=== PATIENT | female | born 1960 | race Caucasian/White ===

== ENCOUNTER 2016-08-01 16:59 | Emergency (ER) | payer OTHER ==
[2016-08-01 17:01] VITALS: BP 159/70; PULSE 62; RESP 16; TEMP 98.5; O2SAT 98
[2016-08-01] MEDS ORDERED: IBUPROFEN 800 MG TAB PO ONE (18:15)
[2016-08-01] MEDS ORDERED: CYCLOBENZAPRINE HCL 10 MG TAB PO ONE (18:15)
--- NOTE | 2016-08-01 18:54 | RADRPT ---
EXAM DATE/TIME: 08/01/2016 18:15 [facility] COMPARISON: No previous studies available for comparison. INDICATIONS : Cervical spine pain, fell MEDICAL HISTORY : None. SURGICAL HISTORY : None. ENCOUNTER: Initial ACUITY: 1 day PAIN SCORE: 8/10 LOCATION: Cervical spine FINDINGS: Two projection examination was performed. There is normal alignment and curvature of the vertebral b odies down to the level of C7. No evidence of fracture or subluxation. Vertebral body height is wander ntained. The disc spaces are maintained. The prevertebral soft tissues are of normal thickness. Th e atlanto-axial articulation is intact. CONCLUSION: 1. Mild degenerative disc disease. No acute findings. Genaro Gomez MD on August 01, 2016 at 18:51 Board Certified Radiologist. This report was verified electronically.
--- NOTE | 2016-08-01 18:55 | RADRPT ---
EXAM DATE/TIME: 08/01/2016 18:19 [facility] COMPARISON: No previous studies available for comparison. INDICATIONS : Lumbar spine pain, fell MEDICAL HISTORY : None. SURGICAL HISTORY : None. ENCOUNTER: Initial ACUITY: 1 day PAIN SCORE: 8/10 LOCATION: Lumbar spine FINDINGS: Two view examination was performed. There are five non-rib bearing vertebral bodies. The vertebral bodies are in normal alignment without evidence of subluxation or scoliosis. Moderate degenerative ch anges lower lumbar spine. The pedicles are intact. Bony mineralization is normal. No fracture is id entified. CONCLUSION: Moderate degenerative disc disease in the lower lumbar spine with vacuum phenomenon at L4-5-S1. No fr acture or subluxation. Genaro Gomez MD on August 01, 2016 at 18:52 Board Certified Radiologist. This report was verified electronically.
[2016-08-01] MEDS ORDERED: IBUP-232 PO (19:12)
[2016-08-01] MEDS ORDERED: CYCL1TAB29 PO (19:12)
--- NOTE | 2016-08-01 19:14 | PD ---
HPI Chief Complaint: Back/ Neck Pain or Injury Time Seen by Provider: 18:00 Travel History International Travel<30 days: No Contact w/Intl Traveler<30days: No Traveled to known affect area: No History of Present Illness HPI Patient is a 56 year old female presented to the evaluation of neck and lower back pain after slipping at latter-day this morning. Patient slipped on a piece of potato, she did not fall to the ground, she grabbed onto a table. She denies any bladder or bowel incontinence, no saddle paresthesia, no weakness in her extremities. Patient is mainly [place]-speaking, her daughter is interpreting. They were offered formal interpretation services but refused. She reports her pain as a 6 out of 10 and describes it as sore. [facility] Past Medical History Medical History: Denies Significant Hx High Cholesterol: Yes Diminished Hearing: No Past Surgical History Surgical History: No Previous Surgery Social History Alcohol Use: No Tobacco Use: No Substance Use: No Allergies-Medications (Allergen,Severity, Reaction): Coded Allergies: Sulfa (Verified Allergy, Unknown, 08/01/16) Review of Systems Except as stated in HPI: all other systems reviewed are Neg Musculoskeletal: Positive: Myalgias, Cramping, Pain Physical Exam Narrative GENERAL: Well, well-nourished, alert female. Resting comfortably in no acute distress. SKIN: Focused skin assessment warm/dry. HEAD: Atraumatic. Normocephalic. EYES: Pupils equal and round. No scleral icterus. No injection or drainage. ENT: No nasal bleeding or discharge. Mucous membranes pink and moist. NECK: Trachea midline. No JVD. Full range of motion with rotation, flexion, extension. Cervical spine tenderness noted. CARDIOVASCULAR: Regular rate and rhythm. No murmur appreciated. RESPIRATORY: No accessory muscle use. Clear to auscultation. Breath sounds equal bilaterally. GASTROINTESTINAL: Abdomen soft, non-tender, nondistended. Hepatic and splenic margins not palpable. MUSCULOSKELETAL: No obvious deformities. No clubbing. No cyanosis. No edema. NEUROLOGICAL: Awake and alert. No obvious cranial nerve deficits. Motor grossly within normal limits. Normal speech. PSYCHIATRIC: Appropriate mood and affect; insight and judgment normal. Data Data Last Documented VS Vital Signs Date Time Temp Pulse Resp B/P Pulse Ox O2 Delivery O2 Flow Rate FiO2 08/01/16 18:04 16 08/01/16 17:01 98.5 62 159/70 98 Room Air Orders Ibuprofen (Motrin) (08/01/16 18:15) Cyclobenzaprine (Flexeril) (08/01/16 18:15) Spine, Cervical - Ltd (Ap&Lat) (08/01/16 ) Spine, Lumbar - Ltd (Ap & Lat) (08/01/16 ) MDM Medical Decision Making Medical Screen Exam Complete: Yes Emergency Medical Condition: Yes Interpretation(s) Last Impressions Lumbar Spine X-Ray 08/01/16 0000 Signed Impressions: Service Date/Time: Monday, August 01, 2016 18:19 - CONCLUSION: Moderate degenerative disc disease in the lower lumbar spine with vacuum phenomenon at L4-5-S1. No fracture or subluxation. Genaro Gomez MD Cervical Spine X-Ray 08/01/16 0000 Signed Impressions: Service Date/Time: Monday, August 01, 2016 18:15 - CONCLUSION: 1. Mild degenerative disc disease. No acute findings. Genaro Gomez MD Vital Signs Date Time Temp Pulse Resp B/P Pulse Ox O2 Delivery O2 Flow Rate FiO2 08/01/16 18:04 16 08/01/16 17:01 98.5 62 16 159/70 98 Room Air Differential Diagnosis Sprain Versus strain versus spasm versus discogenic pain versus fracture versus other Narrative Course Patient is a 56-year-old female presenting to the emergency department evaluation of neck and back pain after slipping at latter-day this morning. She did not fall she did catch herself on a table. Patient's vital signs are stable , she is [place]i-speaking, family refuse formal interpretation services, daughter is interpreting. Imaging ordered and pending, patient given medication. Imaging is negative for acute fracture or abnormality. Patient is encouraged to take medications as directed, apply warm moist heat to affected area, all with primary doctor. They were encouraged to return to emergency department for any new or worsening symptoms. Patient verbalized understanding of instructions. Patient stable for discharge. Diagnosis Primary Impression: Strain of lumbar paraspinal muscle Qualified Code: S39.012A - Strain of lumbar paraspinal muscle, initial encounter Additional Impression: Cervical muscle strain Qualified Code: S16.1XXA - Cervical muscle strain, initial encounter Referrals: Primary Care Physician Patient Instructions: General Instructions, Muscle Strain (ED) Additional Instructions: Follow-up with your primary doctor Take medications as directed Apply warm moist heat to affected area, continue range of motion exercises, avoid bed rest Department for any new or worsening symptoms Med/Other Pt SpecificInfo: Prescription(s) given Scripts Cyclobenzaprine (Flexeril)10 Mg Tab10 Mg PO TID PRN (MUSCLE SPASM) 7 Days Ref 0 Prov:Brittany Matthews 08/01/16 Ibuprofen 600 Mg [id number] Mg PO Q6H PRN (Pain/Inflammation) #40 TAB Ref 0 Prov:Brittany Matthews 08/01/16 Disposition: 01 DISCHARGE HOME Condition: Stable Brittany Matthews August 01, 2016 19:14
== END 2016-08-01 20:21 | disposition home or self-care (01) ==
LOC: NEPD 16:59
DX: S39.012A Strain of muscle, fascia and tendon of lower back, initial encounter (principal); S16.1XXA Strain of muscle, fascia and tendon at neck level, initial encounter; W18.41XA Slipping, tripping and stumbling without falling due to stepping on object, initial encounter; Y92.22 Religious institution as the place of occurrence of the external cause
CPT/HCPCS: 72040; 72100; 99283

== ENCOUNTER 2017-06-17 18:54 | Emergency (ER) | payer SELFPAY ==
[~2017-06-17] VITALS: Ht 157.5 cm; Wt 70.0 kg
[~2017-06-17 18:54] MED LIST: CYCL10TA PO; IBUP-232 PO
[2017-06-17 19:23] VITALS: BP 120/57; PULSE 90; RESP 16; TEMP 100.6; O2SAT 98
[2017-06-17] MEDS ORDERED: CHLORPHENIR/HYDROCOD LIQUID 8 MG/10 MG/5 ML CUP PO ONE (21:15)
[2017-06-17] MEDS ORDERED: IBUPROFEN 800 MG TAB PO ONE (21:15)
--- NOTE | 2017-06-17 21:40 | PD ---
HPI . Flulike symptoms Chief Complaint: Cold / Flu Symptoms Time Seen by Provider: 20:57 Travel History International Travel<30 days: No Contact w/Intl Traveler<30days: No Traveled to known affect area: No History of Present Illness HPI This patient presents with flulike symptoms which started 5 days ago. She is complaining with myalgias, cough, fever, vomiting, diarrhea, headache, chest pain. Her grandson has recently had the flu. The patient states that she was seen as an outpatient on 06/14 and was given prescriptions for Zithromax and prednisone. She has taken those but is no better. She subsequently presents to us for evaluation. Symptoms have been persistent for the last 5 days. There are no modifying factors. Symptoms are mild. PFSH Past Medical History High Cholesterol: Yes Diminished Hearing: No Social History Alcohol Use: No Tobacco Use: No Substance Use: No Allergies-Medications (Allergen,Severity, Reaction): Coded Allergies: Sulfa (Sulfonamide Antibiotics) (Unverified Allergy, Unknown, 06/17/17) Reported Meds & Prescriptions Reported Meds & Active Scripts Active Flexeril (Cyclobenzaprine HCl) 10 Mg Tab 10 Mg PO TID PRN 7 Days Ibuprofen 600 Mg Tab 600 Mg PO Q6H PRN Review of Systems Except as stated in HPI: all other systems reviewed are Neg General / Constitutional: Positive: Fever, Chills HENT: Positive: Headaches, Sore Throat, Rhinorrhea Cardiovascular: Positive: Chest Pain or Discomfort Respiratory: Positive: Cough Gastrointestinal: Positive: Nausea, Vomiting, Diarrhea Musculoskeletal: Positive: Myalgias Physical Exam Narrative GENERAL: Healthy-appearing woman who is in no acute distress. SKIN: warm/dry. Good color and turgor. HEAD: Normocephalic. Atraumatic. EYES: Pupils equal and round. No scleral icterus. No injection or drainage. ENT: Mild clear nasal drainage. Mild erythema of the oropharynx. NECK: Trachea midline. Full range of motion without pain.. No cervical lymphadenopathy. CARDIOVASCULAR: Regular rate and rhythm. Heart sounds are normal. RESPIRATORY: No accessory muscle use. Clear to auscultation. Breath sounds equal bilaterally. MUSCULOSKELETAL: No obvious deformities. NEUROLOGICAL: Awake and alert. No obvious cranial nerve deficits. Motor grossly within normal limits. Normal speech. PSYCHIATRIC: Appropriate mood and affect; insight and judgment normal. Data Data Last Documented VS Vital Signs Date Time Temp Pulse Resp B/P (MAP) Pulse Ox O2 Delivery O2 Flow Rate FiO2 06/17/17 19:23 100.6 90 16 120/57 (78) 98 Room Air Orders Orders Influenzae A/B Antigen (06/17/17 21:08) Chest, Pa & Lat (06/17/17 21:06) Ibuprofen (Motrin) (06/17/17 21:15) Chlorphenir-Hydrocodone Liq (Tussionex L (06/17/17 21:15) MDM Medical Decision Making Medical Screen Exam Complete: Yes Emergency Medical Condition: Yes Differential Diagnosis Differential diagnosis of fever includes but is not limited to viral illness, strep throat, otitis media, pneumonia, sepsis, UTI Narrative Course This patient presents with flulike symptoms. Onset of symptoms was 5 days ago. She has had an exposure to smoke. I have ordered a flu screen and a chest x-ray. The patient looks well. While she is awaiting for her test, I will give her a dose of Motrin and cough syrup. I anticipate discharge. CXR>>There is minimal subsegmental basilar air space disease, best seen on the lateral view. Findings most characteristic of a mild bronchopneumonia. No effusion. No pneumothorax. Heart size normal. The chest x-ray was independently viewed by me. This patient has just finished a course of Zithromax. I will give her a dose of Rocephin IM here. I will discharge her to home on oral Augmentin. Diagnosis Primary Impression: Pneumonia Qualified Codes: J18.1 - Lobar pneumonia, unspecified organism Patient Instructions: Community Acquired Pneumonia (DC), General Instructions Med/Other Pt SpecificInfo: Prescription(s) given Scripts Hydrocodone-Chlorpheniramine 12 HR Liq (Tussionex Pennkinetic Ext 12 HR Liq) 10- 8 Mg/5 Ml Susp 5 ML PO Q12H Y for COUGH AND/OR COLD SYMPTOMS, #60 ML 0 Refills Prov: Abby Coreas MD 06/17/17 Amoxicillin-Clavulanate (Augmentin) 875-125 Mg Tab 1 TAB PO BID for Infection for 10 Days, #20 TAB 0 Refills Prov: Abby Coreas MD 06/17/17 Ibuprofen (Ibuprofen) 600 Mg Tab 600 MG PO Q6H Y for FEVER, #40 TAB 0 Refills Prov: Abby Coreas MD 06/17/17 Disposition: 01 DISCHARGE HOME Condition: Stable Abby Coreas MD Jun 17, 2017 21:40
--- NOTE | 2017-06-17 21:51 | RADRPT ---
EXAM DATE/TIME: 06/17/2017 21:16 [facility] COMPARISON: No previous studies available for comparison. INDICATIONS : Body aches, loss of appetite, chest pain with every cough. MEDICAL HISTORY : None. SURGICAL HISTORY : None. ENCOUNTER: Initial ACUITY: 3 days PAIN SCORE: 5/10 LOCATION: Bilateral chest middle of chest FINDINGS: There is minimal subsegmental basilar air space disease, best seen on the lateral view. Findings most characteristic of a mild bronchopneumonia. No effusion. No pneumothorax. Heart size normal. CONCLUSION: 1. Probable mild bronchopneumonia at the lung bases. Genaro Gomez MD on June 17, 2017 at 21:47 Board Certified Radiologist. This report was verified electronically.
[2017-06-17] MEDS ORDERED: AUGM875T3 PO (22:11)
[2017-06-17] MEDS ORDERED: TUSSSUS2 PO (22:11)
[2017-06-17] MEDS ORDERED: IBUP-232 PO (22:11)
[2017-06-17] MEDS ORDERED: LIDOCAINE HCL 1% PF 30 ML VIAL XX ONE (22:30)
== END 2017-06-17 22:43 | disposition home or self-care (01) ==
LOC: NEPC 18:54
DX: J18.1 Lobar pneumonia, unspecified organism (principal); E78.00 Pure hypercholesterolemia, unspecified
CPT/HCPCS: 71046; 87804; 96372; 99284; J0696